=== PATIENT | female | born 1960 | race Caucasian/White ===

== ENCOUNTER 2016-12-02 04:51 | Inpatient (IN) | payer MEDICARE ==
[~2016-12-02] VITALS: Ht 170.2 cm; Wt 79.4 kg
[2016-12-02] VITALS (7 sets, daily range): BP systolic 150–188; RESP 18–24; TEMP 97.6–98.4; BMI 29.3
[2016-12-02] MEDS ORDERED: ACETAMINOPHEN 325 MG TAB PO PRN (12:10)
[2016-12-02] MEDS ORDERED: ALPRAZOLAM 0.25 MG TAB PO PRN (12:10)
[2016-12-02] MEDS ORDERED: ONDANSETRON 4 MG VIAL IV PUSH PRN (12:10)
[2016-12-02] MEDS ORDERED: *PINK BRACELET XX ONE (12:15)
[2016-12-02] MEDS: METOPROLOL XL 25 MG TAB PO SCH ×2 (15:26→20:25)
[2016-12-02] MEDS: Furosemide 100 MG/10 ML VIAL IV SCH ×2 (15:26→18:05)
[2016-12-02] MEDS: SITAGLIPTIN 50 MG TAB PO SCH (15:26)
[2016-12-02] MEDS: LEVEMIR INSULIN SUBQ SCH (15:46)
[2016-12-02] MEDS: *HOME MEDS KEPT IN PHARMACY XX SCH (20:00)
[2016-12-02] MEDS: PANTOPRAZOLE 20 MG TAB PO SCH (20:25)
[2016-12-03 04:34] VITALS: BP_SYST 178; RESP 18; TEMP 98
[2016-12-03 07:45] VITALS: BP_SYST 160; RESP 18; TEMP 98.1
[2016-12-03] MEDS: *HOME MEDS KEPT IN PHARMACY XX SCH ×2 (08:00→19:50)
[2016-12-03] MEDS: SITAGLIPTIN 50 MG TAB PO SCH (08:34)
[2016-12-03] MEDS: METOPROLOL XL 25 MG TAB PO SCH ×2 (08:34→19:50)
[2016-12-03] MEDS: LEVEMIR INSULIN SUBQ SCH (08:35)
[2016-12-03] MEDS: Furosemide 100 MG/10 ML VIAL IV SCH ×2 (08:35→17:22)
[2016-12-03] MEDS ORDERED: IRON SUCROSE COMPLEX 400 MG in SODIUM CHLORIDE 0.9% 250 ML IV ONE (10:30)
[2016-12-03] MEDS: CEFTRIAXONE 1 GM in SODIUM CHLORIDE 0.9% 50 ML IV SCH (11:13)
[2016-12-03 12:11] VITALS: BP_SYST 160; RESP 18; TEMP 98.2
[2016-12-03] MEDS: LISINOPRIL/HCTZ 20-25 TAB PO SCH (12:25)
[2016-12-03] MEDS: PANTOPRAZOLE 20 MG TAB PO SCH (19:50)
[2016-12-03 20:30] VITALS: BP_SYST 160; RESP 16; TEMP 98.5
[2016-12-03 23:59] VITALS: BP_SYST 162; RESP 16; TEMP 98.3
[2016-12-04 03:30] VITALS: BP_SYST 154; RESP 16; TEMP 96.5; TEMP 97.6
[2016-12-04] MEDS: *HOME MEDS KEPT IN PHARMACY XX SCH ×2 (08:00→19:45)
[2016-12-04 08:12] VITALS: BP_SYST 146; RESP 18; TEMP 96.3
[2016-12-04] MEDS ORDERED: IRON SUCROSE COMPLEX 400 MG in SODIUM CHLORIDE 0.9% 250 ML IV SCH (09:00)
[2016-12-04] MEDS: LISINOPRIL/HCTZ 20-25 TAB PO SCH (09:00)
[2016-12-04] MEDS: Furosemide 100 MG/10 ML VIAL IV SCH ×2 (09:52→16:55)
[2016-12-04] MEDS: SITAGLIPTIN 50 MG TAB PO SCH (09:53)
[2016-12-04] MEDS: METOPROLOL XL 25 MG TAB PO SCH ×2 (09:53→19:59)
[2016-12-04] MEDS: LEVEMIR INSULIN SUBQ SCH (09:54)
[2016-12-04] MEDS: CEFTRIAXONE 1 GM in SODIUM CHLORIDE 0.9% 50 ML IV SCH (09:55)
[2016-12-04 12:51] VITALS: BP_SYST 142; RESP 18; TEMP 97.9
[2016-12-04 14:40] VITALS: BP_SYST 130; RESP 18; TEMP 97.8
[2016-12-04] MEDS: PANTOPRAZOLE 20 MG TAB PO SCH (19:59)
[2016-12-04 20:40] VITALS: BP_SYST 180; RESP 16; TEMP 97.3
[2016-12-05] VITALS (7 sets, daily range): BP systolic 135–180; RESP 18–20; TEMP 96.4–98.7
[2016-12-05] MEDS: *HOME MEDS KEPT IN PHARMACY XX SCH ×2 (07:15→18:55)
[2016-12-05] MEDS ORDERED: MISSING DOSE XX ONE (09:10)
[2016-12-05] MEDS: Furosemide 100 MG/10 ML VIAL IV SCH ×2 (09:20→18:21)
[2016-12-05] MEDS: METOPROLOL XL 25 MG TAB PO SCH ×2 (09:20→20:06)
[2016-12-05] MEDS: LEVEMIR INSULIN SUBQ SCH (09:21)
[2016-12-05] MEDS ORDERED: GLUCAGON 1 MG VIAL IM PRN (09:55)
[2016-12-05] MEDS ORDERED: DEXTROSE 50% SYRINGE 50 ML IV PRN (09:55)
[2016-12-05] MEDS: LISINOPRIL/HCTZ 20-25 TAB PO SCH (10:22)
[2016-12-05] MEDS: SITAGLIPTIN 50 MG TAB PO SCH (10:22)
[2016-12-05] MEDS: CEFTRIAXONE 1 GM in SODIUM CHLORIDE 0.9% 50 ML IV SCH (10:22)
[2016-12-05] MEDS: PANTOPRAZOLE 20 MG TAB PO SCH (20:06)
[2016-12-06 03:10] VITALS: BP_SYST 170; RESP 18; TEMP 96.8
[2016-12-06 07:32] VITALS: BP_SYST 158; RESP 18; TEMP 96.7
[2016-12-06] MEDS: *HOME MEDS KEPT IN PHARMACY XX SCH (08:00)
[2016-12-06] MEDS ORDERED: EPOETIN 40,000 UNIT VIAL SUBQ ONE (08:25)
[2016-12-06] MEDS: LEVEMIR INSULIN SUBQ SCH (09:28)
[2016-12-06] MEDS ORDERED: MISSING DOSE XX ONE (09:35)
[2016-12-06] MEDS: Furosemide 100 MG/10 ML VIAL IV SCH (10:35)
[2016-12-06] MEDS: METOPROLOL XL 25 MG TAB PO SCH (10:35)
[2016-12-06] MEDS: LISINOPRIL/HCTZ 20-25 TAB PO SCH (10:35)
[2016-12-06] MEDS: SITAGLIPTIN 50 MG TAB PO SCH (10:36)
[2016-12-06] MEDS: CEFTRIAXONE 1 GM in SODIUM CHLORIDE 0.9% 50 ML IV SCH (10:36)
[2016-12-06 11:09] VITALS: BP_SYST 164; RESP 18; TEMP 98.3
[2016-12-06 12:40] VITALS: BP_SYST 164; RESP 18; TEMP 98.3
[2016-12-06 15:17] VITALS: BP_SYST 162; RESP 18; TEMP 97.9
== END 2016-12-06 16:13 | disposition home or self-care (01) | DRG 291 ==
LOC: ENRESERVDT → ENRESERVTM → ENRESERV → PREINTOOBSV 04:53 → PCU2 10:00 → PCU 12-03 04:32 → OBSVTOIN 12-03 15:03 → ENPENDDIS 12-03 15:03 → 4THW 12-05 23:20
PROVIDERS: ADMIT Internal Medicine Nephrology; ATTEND Internal Medicine Nephrology
CPT/HCPCS: 71010; 76770; 80048; 80053; 81050; 82310; 82575; 82947; 83036; 83519; 83540; 83880; 84100; 84156; 84166; 84466; 84484; 85025; 93306